=== PATIENT | male | born 1975 | race Caucasian/White ===

== ENCOUNTER 2022-05-12 13:51 | Emergency (ER) | payer OTHER ==
[2022-05-12 13:58] VITALS: TEMP 98.1
--- NOTE | 2022-05-12 14:25 | XR ---
EXAMINATION TYPE: XR ankle complete LT DATE OF EXAM: 05/12/2022 COMPARISON: NONE HISTORY: Ankle pain TECHNIQUE: 3 views FINDINGS: Ankle mortise is anatomic. There is no fracture nor dislocation. There is plantar and Achil les calcaneal spurring. Joint spaces are fairly normal. IMPRESSION: No acute abnormality of the left ankle.
--- NOTE | 2022-05-12 14:43 | ED ---
General Adult HPI - General Chief complaint: Extremity Injury, Lower Stated complaint: Lt ankle Injury Time Seen by Provider: 05/12/22 14:30 Source: patient, RN notes reviewed, old records reviewed Mode of arrival: ambulatory Limitations: no limitations - History of Present Illness Initial comments: This is a 47-year-old male who presents emergency Department complaining of left lateral ankle pain. Patient states about a month ago rock from a lawnmower shot out hit him in the ankle ever since then he's had pain just anterior to the lateral malleolus on the left. Patient denies any swelling patient denies any redness patient denies any numbness. Patient states it just hurts to walk on it and he is walking on a daily as a bello. Patient states she also has not been taking any medications for. Patient denies any foot pain or knee pain. - Related Data Previous Rx's Medication Instructions Recorded Ibuprofen [Motrin] 600 mg PO Q6HR PRN #20 tab 05/12/22 Allergies Allergy/AdvReac Type Severity Reaction Status Date / Time No Known Allergies Allergy Verified 05/12/22 13:58 Review of Systems ROS Statement: Those systems with pertinent positive or pertinent negative responses have been documented in the HPI. ROS Other: All systems not noted in ROS Statement are negative. Past Medical History Past Medical History: COPD Additional Past Medical History / Comment(s): back pain History of Any Multi-Drug Resistant Organisms: None Reported Past Surgical History: No Surgical Hx Reported Past Psychological History: Depression Past Alcohol Use History: None Reported Past Drug Use History: None Reported General Exam - General Exam Comments Initial Comments: GENERAL: Patient is well-developed and well-nourished. Patient is nontoxic and well- hydrated and is in mild distress. ENT: Neck has full range of motion without eliciting any pain. EYES: The sclera were anicteric and conjunctiva were pink and moist. Extraocular mov ements were intact and pupils were equal round and reactive to light. Eyelids were unremarkable. SKIN: Skin is clear with no lesions or rashes and otherwise unremarkable. NEUROLOGIC: Patient is alert and oriented x3. Cranial nerves II through XII are grossly intact. Motor and sensory are also intact. Normal speech, volume and content. Symmetrical smile. MUSCULOSKELETAL: Patient is tender just anterior to the left lateral malleolus. No signs of swelling or erythema LYMPHATICS: No significant lymphadenopathy is noted PSYCHIATRIC: Normal psychiatric evaluation. Limitations: no limitations Course Vital Signs 05/12/22 13:53 Temperature 98.1 F Pulse Rate 88 Respiratory 20 Rate Blood Pressure 151/89 O2 Sat by Pulse 98 Oximetry Medical Decision Making - Medical Decision Making X-ray shows no acute abnormality of the ankle Disposition Clinical Impression: Ankle contusion Disposition: HOME SELF-CARE Condition: Good Instructions (If sedation given, give patient instructions): Contusion in Adults (ED) Prescriptions: Ibuprofen [Motrin] 600 mg PO Q6HR PRN #20 tab PRN Reason: For pain Is patient prescribed a controlled substance at d/c from ED?: No Referrals: Jennifer Mulligan DO [Doctor of Osteopathic Medicine] - 1-2 days Time of Disposition: 14:43
[2022-05-12] MEDS ORDERED: KETOROLAC 15 MG/ML 1 ML VIAL IM STA (14:44)
[2022-05-12 15:22] VITALS: BP 147/86; PULSE 82; RESP 16
== END 2022-05-12 15:20 | disposition home or self-care (01) ==
LOC: EC 13:51
DX: S90.02XA Contusion of left ankle, initial encounter (principal); J44.9 Chronic obstructive pulmonary disease, unspecified; W20.8XXA Other cause of strike by thrown, projected or falling object, initial encounter
CPT/HCPCS: 73610; 99283; 96372; L4350; J1885

== ENCOUNTER 2024-02-21 22:19 | Inpatient (IN) | payer MEDICAID, OTHER ==
[2024-02-21] MEDS: LORazepam 1 MG TAB PO STA (23:54)
--- NOTE | 2024-02-22 00:51 | ED ---
Psych HPI - General Chief Complaint: Psychiatric Symptoms Stated Complaint: suicidal Time Seen by Provider: 02/21/24 23:08 Source: patient, EMS Mode of arrival: EMS Limitations: no limitations - History of Present Illness Initial Comments: This patient is a 49-year-old man who is brought by law enforcement to have psychiatric evaluation. The patient states that he has been dealing with a lot of stress. He states that his brother had committed suicide. Patient also lost his residence and states that his girlfriend had left. Patient states that he was feeling very upset tonight and he inflicted some lacerations to his bilateral forearms. The patient states he is not suicidal. Patient does feel he could use some help dealing with the stress. MD Complaint: other -: hour(s) Associated Psychiatric Symptoms: depression History of same: Yes Quality: intermittent Improves With: none Worsens With: none If Self Harm: admits thoughts of self harm - Related Data Previous Rx's Medication Instructions Recorded Folic Acid 1 mg PO DAILY #0 tab 02/27/24 HYDROcodone/APAP 7.5-325MG [[place] 1 each PO Q8HR PRN tab 02/27/24 7.5-325] Multivitamins, Thera [Multivitamin 1 each PO DAILY tab 02/27/24 (formulary)] Nicotine 21Mg/24Hr Patch [Habitrol] 1 patch TRANSDERM DAILY 14 Days 02/27/24 #14 patch Sertraline [Zoloft] 50 mg PO DAILY 30 Days #30 tab 02/27/24 Thiamine [Vitamin B-1] 100 mg PO DAILY tab 02/27/24 hydrOXYzine pamoate [Vistaril] 50 mg PO DAILY PRN 30 Days #60 cap 02/27/24 traZODone HCL [Desyrel] 100 mg PO HS 30 Days #30 tab 02/27/24 Allergies Allergy/AdvReac Type Severity Reaction Status Date / Time No Known Allergies Allergy Verified 05/12/22 13:58 Review of Systems ROS Statement: Those systems with pertinent positive or pertinent negative responses have been documented in the HPI. ROS Other: All systems not noted in ROS Statement are negative. Constitutional: Denies: fever, chills Respiratory: Denies: cough, dyspnea Cardiovascular: Denies: chest pain, palpitations Gastrointestinal: Denies: abdominal pain, vomiting, diarrhea Musculoskeletal: Denies: back pain Skin: Reports: lesions Neurological: Denies: headache, weakness, numbness Psychiatric: Reports: anxiety, depression. Denies: auditory hallucinations, visual hallucinations, homicidal thoughts, suicidal thoughts Past Medical History Past Medical History: COPD Additional Past Medical History / Comment(s): back pain History of Any Multi-Drug Resistant Organisms: None Reported Past Surgical History: No Surgical Hx Reported Past Psychological History: Depression Past Alcohol Use History: None Reported Past Drug Use History: None Reported General Exam Limitations: no limitations General appearance: alert, in no apparent distress Head exam: Present: atraumatic, normocephalic Eye exam: Present: normal appearance. Absent: scleral icterus, conjunctival injection Neck exam: Present: normal inspection Respiratory exam: Present: normal lung sounds bilaterally. Absent: respiratory distress, wheezes, rales, rhonchi, stridor, accessory muscle use Cardiovascular Exam: Present: regular rate, normal rhythm, normal heart sounds. Absent: systolic murmur, diastolic murmur, rubs, gallop GI/Abdominal exam: Present: soft. Absent: distended, tenderness, guarding, rebound, rigid, mass Extremities exam: Present: normal capillary refill. Absent: pedal edema, calf tenderness Neurological exam: Present: alert. Absent: motor sensory deficit Psychiatric exam: Present: depressed, anxious. Absent: flat affect, manic, homicidal ideation, suicidal ideation Skin exam: Present: warm, dry, other (Has some superficial lacerations to the palmar aspect of both wrists. None that are requiring suturing) Course Vital Signs 02/21/24 02/21/24 02/22/24 22:38 22:54 07:57 Temperature 98.4 F 97.9 F Pulse Rate 70 68 68 Pulse Rate [ Right Sitting Pulse Oximetery ] Respiratory 18 20 18 Rate Blood Pressure 153/99 150/94 142/82 Blood Pressure [Right Arm Sitting] O2 Sat by Pulse 98 99 99 Oximetry 02/22/24 08:20 Temperature 98 F Pulse Rate Pulse Rate [ 82 Right Sitting Pulse Oximetery ] Respiratory 20 Rate Blood Pressure Blood Pressure 168/95 [Right Arm Sitting] O2 Sat by Pulse 97 Oximetry Medical Decision Making - Medical Decision Making Was pt. sent in by a medical professional or institution (, PA, [employer], urgent care, hospital, or care home...) When possible be specific @ -[No] Did you speak to anyone other than the patient for history (EMS, parent, family, police, friend...)? What history was obtained from this source @ -[No] Did you review nursing and triage notes (agree or disagree)? Why? @ -[I reviewed and agree with nursing and triage notes] Were old charts reviewed (outside hosp., previous admission, EMS record, old EKG, old radiological studies, urgent care reports/EKG's, care home records)? Report findings @ -[No old charts were reviewed] Differential Diagnosis (chest pain, altered mental status, abdominal pain women, abdominal pain men, vaginal bleeding, weakness, fever, dyspnea, syncope, headache, dizziness, GI bleed, back pain, seizure, CVA, palpatations, mental health, musculoskeletal)? @ -[Differential Mental Health Depression, anxiety, bipolar, psychosis, schizophrenia, borderline personality, situational depression, adjustment disorder, behavioral disorder, brain tumor, malingering, substance abuse, encephalopathy, medication reaction, dementia, hypothyroidism, degenerative neurologic disorder, lupus.... This is not meant to be all-inclusive list EKG interpreted by me (3pts min.). @ -[As above] X-rays interpreted by me (1pt min.). @ -[None done] CT interpreted by me (1pt min.). @ -[None done] U/S interpreted by me (1pt. min.). @ -[None done] What testing was considered but not performed or refused? (CT, X-rays, U/S, labs)? Why? @ -[None] What meds were considered but not given or refused? Why? @ -[None] Did you discuss the management of the patient with other professionals (professionals i.e. , PA, [employer], lab, RT, psych nurse, social work specialist, director of event sales, teacher, code enforcement officer, director case)? Give summary @ -[No] Was smoking cessation discussed for >3mins.? @ -[No] Was critical care preformed (if so, how long)? @ -[No] Were there social determinants of health that impacted care today? How? (Homelessness, low income, unemployed, alcoholism, drug addiction, transportation, low edu. Level, literacy, decrease access to med. care, long term, rehab)? @ -[No] Was there de-escalation of care discussed even if they declined (Discuss DNR or withdrawal of care, Hospice)? DNR status @ -[No] What co-morbidities impacted this encounter? (DM, HTN, Smoking, COPD, CAD, Cancer, CVA, ARF, Chemo, Hep., AIDS, mental health diagnosis, sleep apnea, morbid obesity)? @ -[None] Was patient admitted / discharged? Hospital course, mention meds given and route, prescriptions, significant lab abnormalities, going to OR and other pertinent info. @ -[Patient is 49-year-old man brought to have psychiatric evaluation after making suicidal statements. The patient is evaluated by EPS and they will admit the patient to have further psychiatric treatment. Undiagnosed new problem with uncertain prognosis? @ -[No] Drug Therapy requiring intensive monitoring for toxicity (Heparin, Nitro, Insulin, Cardizem)? @ -[No] Were any procedures done? @ -[No] Diagnosis/symptom? @ -[Acute mood disorder with suicidal ideation Substance abuse Acute, or Chronic, or Acute on Chronic? @ -[Acute Uncomplicated (without systemic symptoms) or Complicated (systemic symptoms)? @ -[default] Side effects of treatment? @ -[No] Exacerbation, Progression, or Severe Exacerbation? @ -[No] Poses a threat to life or bodily function? How? (Chest pain, USA, NM, pneumonia, PE, COPD, DKA, ARF, appy, cholecystitis, CVA, Diverticulitis, Homicidal, Suicidal, threat to staff... and all critical care pts) @ -[Yes uncomplicated - Lab Data Result diagrams: 02/22/24 10:33 02/22/24 10:33 Lab Results 02/22/24 02/22/24 02/22/24 Range/Units 05:40 05:40 06:58 Urine Color Yellow Urine Appearance Clear (Clear) Urine pH 5.0 (5.0-8.0) Ur Specific [place] 1.015 (1.001-1.035) Urine Protein Negative (Negative) Urine Glucose (UA) Negative (Negative) Urine Ketones Negative (Negative) Urine Blood Negative (Negative) Urine Nitrite Negative (Negative) Urine Bilirubin Negative (Negative) Urine Urobilinogen <2.0 (<2.0) mg/dL Ur Leukocyte Esterase Negative (Negative) Urine Opiates Screen Detected H (NotDetected) Ur Oxycodone Screen Not Detected (NotDetected) Urine Methadone Screen Not Detected (NotDetected) Ur Barbiturates Screen Not Detected (NotDetected) U Tricyclic Antidepress Not Detected (NotDetected) Ur Phencyclidine Scrn Not Detected (NotDetected) Ur Amphetamines Screen Not Detected (NotDetected) U Methamphetamines Scrn Not Detected (NotDetected) U Benzodiazepines Scrn Detected H (NotDetected) Urine Cocaine Screen Not Detected (NotDetected) U Marijuana (THC) Screen Detected H (NotDetected) Influenza Type A (PCR) Not Detected (Not Detectd) Influenza Type B (PCR) Not Detected (Not Detectd) RSV (PCR) Not Detected (Not Detectd) SARS-CoV-2 (PCR) Not Detected (Not Detectd) Disposition Clinical Impression: Suicidal ideation Disposition: ADMITTED IP TO THIS HOSP Condition: Good Is patient prescribed a controlled substance at d/c from ED?: No
[2024-02-22] MEDS ORDERED: ACETAMINOPHEN TAB 325 MG TAB PO PRN (07:42)
[2024-02-22] MEDS ORDERED: haloperidoL 5 MG TAB PO PRN (07:42)
[2024-02-22] MEDS ORDERED: MAG HYDROX/AL HYDROX/SIMETH 355 ML BOTTLE PO PRN (07:42)
[2024-02-22] MEDS ORDERED: HALOPERIDOL LACTATE 5 MG/ML 1 ML VIAL IM PRN (07:42)
[2024-02-22] MEDS ORDERED: MAGNESIUM HYDROXIDE 2,400 MG/30 ML CUP PO PRN (07:42)
[2024-02-22] MEDS: FOLIC ACID 1 MG TAB PO SCH (09:05)
[2024-02-22] MEDS: MULTIVITAMINS, THERA 1 EACH TAB PO SCH (09:05)
[2024-02-22] MEDS: THIAMINE 100 MG TAB PO SCH (09:05)
[2024-02-22] MEDS: NICOTINE 21MG/24HR PATCH TRANSDERM SCH (09:06)
[2024-02-22] MEDS: HYDROcodone/APAP 7.5-325MG 1 EACH TAB PO PRN (09:09)
[2024-02-22] MEDS: LORazepam 1 MG TAB PO PRN (09:11)
--- NOTE | 2024-02-22 10:22 | P.HP ---
Psychiatric H&P - . H&P Date: 02/22/24 History & Physical: Allergies Allergy/AdvReac Type Severity Reaction Status Date / Time No Known Allergies Allergy Verified 05/12/22 13:58 Vital Signs Temp 98 F 02/22/24 08:20 Pulse 82 02/22/24 08:20 Resp 20 02/22/24 08:20 BP 168/95 02/22/24 08:20 Pulse Ox 97 02/22/24 08:20 FiO2 Intake & Output 02/21/24 02/22/24 02/22/24 18:59 06:59 18:59 Weight 81.647 kg 71.894 kg Laboratory Last Values Influenza Type A (PCR) Not Detected (Not Detectd) 02/22/24 05:40 Influenza Type B (PCR) Not Detected (Not Detectd) 02/22/24 05:40 RSV (PCR) Not Detected (Not Detectd) 02/22/24 05:40 SARS-CoV-2 (PCR) Not Detected (Not Detectd) 02/22/24 05:40 02/22/24 10:14 This is a psychiatric assessment on Levy Stafford who is a 49-year-old male who was hospitalized after patient had made comments about wanting to kill himself Patient reports interpersonal family issues and conflicts where he states that he and his girlfriend were having problems getting along with each other He states that the girlfriend always is very condescending and calls him names and that it hurts his feelings Patient states that he made some cuts on his arms and had some suicidal thoughts but denies any actual plans at this time He admits that he drinks some alcohol but that he does use cannabis on a daily basis He states that he has been living with his girlfriend for 15 years He states that he is currently on disability He denies any ongoing psychiatric treatment at this time Past history personal and social history Patient remains somewhat vague about his specific details Patient reports that he is on disability but did not give any specifics He reports that he has had some mental issues but did not get any ongoing treatment and that he was last hospitalized on the psychiatric unit about 11 years ago He states that he usually spends his time watching TV or going for walks Mental status examination: Reveals a tall thin build male with multiple tattoos and shaved head Patient is alert and oriented to time place and person Affect at this time remains flat Patient makes good eye contact Thought processes are goal directed sequential and logical Speech was Soft spoken and appropriate Thought processes are goal directed sequential and logical Patient denies any suicidal or homicidal ideations Mood remains flat Self-esteem and confidence a low cognitively appears to be intact Diagnostic impression: Adjustment disorder with mixed emotional features Major depressive disorder mild Relationship problems/interpersonal family issues and conflicts Cannabis use disorder Alcohol use disorder unsspecified Formulation and plan: The patient will be hospitalized on the unit for further evaluation and treatment Therapy will be focused on providing supportive care and improving his coping abilities to the multimodal treatment Patient will also participate in outdoor activities individual milieu group OT RT PT and pharmacotherapy Approximate length of stay would be 7 to 10 days will start the patient on Zoloft 150 mg daily to start with and titrate to response Patient was briefed on the effects and side effects of the medication which she appears to have understood well If as needed medications have been needed would recommend using Haldol and Vistaril as needed field services analyst on board regarding initiation of any family therapy and other psychosocial services Prasanna Saldaña MD
[2024-02-22 10:41] LABS: Appearance,Urine Clear (Clear); Bilirubin,Urine Negative (Negative); Blood,Urine Negative (Negative); Color,Urine Yellow; Glucose,Urine (UA) Negative (Negative); Ketones,Urine Negative (Negative); Leukocyte Esterase,Urine Negative (Negative); Nitrite,Urine Negative (Negative); Protein,Urine Negative (Negative); Specific Gravity,Urine 1.015 (1.001-1.035); Urobilinogen,Urine <2.0 mg/dL (<2.0)
[2024-02-22 11:01] LABS: Basophils # (A) 0.1 k/uL (0-0.2); Basophils % (A) 1 %; Eosinophils # (A) 0.2 k/uL (0-0.7); Eosinophils % (A) 2 %; HCT 49.9 % (39.0-53.0); HGB 15.8 gm/dL (13.0-17.5); Lymphocytes # (A) 1.5 k/uL (1.0-4.8); Lymphocytes % (A) 20 %; MCH 30.8 pg (25.0-35.0); MCHC 31.7 g/dL (31.0-37.0); MCV 97.2 fL (80.0-100.0); Mean Platelet Volume 8.5; Monocytes # (A) 0.4 k/uL (0-1.0); Monocytes % (A) 5 %; Neutrophils # (A) 5.5 k/uL (1.3-7.7); Neutrophils % (A) 71 %; Platelet Count 240 k/uL (150-450); RBC 5.14 m/uL (4.30-5.90); RDW 12.9 % (11.5-15.5); WBC 7.8 k/uL (3.8-10.6)
[2024-02-22 11:08] LABS: Amphetamine Screen,Urine Not Detected (NotDetected); Barbiturate Screen,Urine Not Detected (NotDetected); Benzodiazepines Screen,Urine Detected (NotDetected); Cocaine Screen,Urine Not Detected (NotDetected); Methadone Screen, Urine Not Detected (NotDetected); Opiate Screen,Urine Detected (NotDetected); Oxycodone Screen, Urine Not Detected (NotDetected); Phencyclidine Screen,Urine Not Detected (NotDetected); Tricyclic Antidepressant,Urine Not Detected (NotDetected); Urn Cannabinoid Scrn Detected (NotDetected)
[2024-02-22 11:20] LABS: ALT 40 U/L (4-49); AST 54 U/L (17-59); African American GFR (CKD) >90 (>60 ml/min/1.73 sqM); Albumin 4.8 g/dL (3.5-5.0); Alkaline Phosphatase 62 U/L (38-126); Anion Gap 9 mmol/L; Bilirubin, Delta 0.4 mg/dL (0.0-0.2); Bilirubin,Unconjugated 0.4 mg/dL (0.0-1.1); Blood Urea Nitrogen 11 mg/dL (9-20); Calcium 9.8 mg/dL (8.4-10.2); Carbon Dioxide 25 mmol/L (22-30); Chloride 107 mmol/L (98-107); Glucose 129 mg/dL (74-99); Non-African American GFR(CKD) >90 (>60 ml/min/1.73 sqM); Potassium 4.4 mmol/L (3.5-5.1); Sodium 141 mmol/L (137-145); Total Bilirubin 0.8 mg/dL (0.2-1.3); Total Protein 7.9 g/dL (6.3-8.2)
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
[2024-02-23 07:48] LABS: Chol/HDL Ratio 1.82 Ratio; LDL Cholesterol,Calculated 76.8 mg/dL (0.0-131.0); VLDL Calculation 12.22 mg/dL (5.00-40.00)
[2024-02-23] MEDS: SERTRALINE 50 MG TAB PO SCH (08:28)
--- NOTE | 2024-02-23 11:40 | P.PN ---
Progress Note - Text Progress Note Date: 02/23/24 Interval History: Patient was seen wandering the hallways and was directable and agreeable to sp hazel with securities underwriter in the office. Patient states what brought him in was "just a bad day". Patient states that him cutting his wrists was not an attempt at suicide, he just wanted to show his friend to "stop fucking with me, I've had enough". Patient states that he is sleeping well at night. He states his appetite is good. Patient denies withdraws from alcohol. Bush Hog Operator spoke with patient about rehab upon discharge, patient is refusing. He states that he don't need it. Bush Hog Operator offered anticraving medication, patient declined. At this time patient denies any suicidal or homicidal ideations, intent or plan. Patient denies any auditory, visual hallucinations and denies any paranoia or delusions. Patient denies any side effects from the medications and has been compliant with meds. Mental Status Exam: General Appearance: [Patient appears to be older than stated age is alert, directable, and cooperative. Patient has fair hygiene. dressed in his own clothes. Multiple tattoos. Tall and thin, with a robertson. Behavior: [Patient is calmly seated without any agitated behavior. Speech: Patient's speech is fluent and nonpressured. Mood/Affect: Mood is improving mildly, affect is congruent and constricted. Suicidality/Homicidality: Patient denies having any suicidal or homicidal ideation intent or plan. Perceptions: Patient denies any visual hallucinations and denies any auditory hallucinations Though content/process: There is no evidence of any delusional thought content and thought process is linear and goal-directed. Memory and concentration: AOX3, grossly intact for the purposes of this session Judgment and insight: Improving mildly Assessment Adjustment disorder with mixed emotional features Major depressive disorder mild Cannabis use disorder Alcohol use disorder unsspecified Plan: -Patient continues to meet criteria for inpatient psychiatric admission for symptom stabilization and safety. Patient has signed adult voluntary form and medication consent and was placed in patient's chart. -Medications: Zoloft 50 mg p.o. daily for mood/anxiety , offered ant cravings medications for etoh and patient refused at this time -When necessary Ativan and Haldol for agitation/aggression. -NRT - nicotine patch -SW on board for discharge planning. Encouraged the patient to participate in milieu. Offered patient rehab, patient refused.
[2024-02-23] MEDS: LORazepam 1 MG TAB PO PRN (17:16)
--- NOTE | 2024-02-24 10:13 | P.PN ---
Progress Note - Text Progress Note Date: 02/24/24 Interval History: Patient was seen today and was directable and agreeable to speak with sba underwriter in the office. Patient was attending group this morning. He claims that he is doing a bit better today, did complain of some withdrawals last night and received Ativan. He states that after he received the Ativan he was able to sleep fairly well. He claims that he is feeling a bit calmer with the medications, not offering any complaints at this time. He claims that he is getting more out of groups at this time, has been getting along with others on the unit, he has been eating regularly and showering. Claims a anxiety still there however mildly improving. At this time patient denies any suicidal or homicidal ideations, intent or plan. Patient denies any auditory, visual hallucinations and denies any paranoia or delusions. Patient denies any side effects from the medications and has been compliant with meds. Mental Status Exam: General Appearance: [Patient appears to be older than stated age is alert, directable, and cooperative. Patient has fair hygiene. dressed in his own cloth es. Multiple tattoos. Tall and thin, with a robertson. Behavior: [Patient is calmly seated without any agitated behavior. Mildly more cooperative today. Speech: Patient's speech is fluent and nonpressured. Mood/Affect: Mood is improving mildly, affect is congruent and constricted. Improving mildly Suicidality/Homicidality: Patient denies having any suicidal or homicidal ideation intent or plan. Perceptions: Patient denies any visual hallucinations and denies any auditory hallucinations Though content/process: There is no evidence of any delusional thought content and thought process is linear and goal-directed. Memory and concentration: AOX3, grossly intact for the purposes of this session Judgment and insight: Improving mildly Assessment: Adjustment disorder with mixed emotional features Major depressive disorder mild Cannabis use disorder Alcohol use disorder unsspecified Plan: -Patient continues to meet criteria for inpatient psychiatric admission for symptom stabilization and safety. Patient has signed adult voluntary form and medication consent and was placed in patient's chart. -Medications: Zoloft 50 mg p.o. daily for mood/anxiety, patient is refusing anti cravings medications for etoh, start trazodone 50 mg nightly as needed for insomnia. -When necessary Ativan and Haldol for agitation/aggression. -NRT - nicotine patch -SW on board for discharge planning. Encouraged the patient to participate in milieu. Offered patient rehab, patient refused. Likely discharge in 2 to 3 days back home.
[2024-02-24] MEDS: traZODone HCL 50 MG TAB PO PRN (20:22)
[2024-02-24] MEDS: IBUPROFEN 600 MG TAB PO PRN (20:22)
--- NOTE | 2024-02-25 10:05 | P.PN ---
Progress Note - Text Progress Note Date: 02/25/24 Interval History: Patient was seen today in group, and was directable and agreeable to speak with mortgage loan underwriter in the office. Patient states his mood and anxiety are mildly improving, not offering any complaints at this time. He states that he is going to all groups, has been getting along with others on the unit, he has been eating regularly and showering. At this time patient denies any suicidal or homicidal ideations, intent or plan. Patient denies any auditory, visual hallucinations and denies any paranoia or delusions. Patient denies any side effects from the medications and has been compliant with meds. Mental Status Exam: General Appearance: Patient appears to be older than stated age is alert, directable, and cooperative. Patient has fair hygiene. dressed in his own clothes. Multiple tattoos. Tall and thin, with a robertson. Behavior: Patient is calmly seated without any agitated behavior. Mildly more cooperative today. Speech: Patient's speech is fluent and nonpressured. Mood/Affect: Mood is improving mildly, affect is congruent and constricted. Improving mildly Suicidality/Homicidality: Patient denies having any suicidal or homicidal ideation intent or plan. Perceptions: Patient denies any visual hallucinations and denies any auditory hallucinations Though content/process: There is no evidence of any delusional thought content and thought process is linear and goal-directed. Memory and concentration: AOX3, grossly intact for the purposes of this session Judgment and insight: Improving mildly Assessment: Adjustment disorder with mixed emotional features Major depressive disorder mild Cannabis use disorder Alcohol use disorder unsspecified Plan: -Patient continues to meet criteria for inpatient psychiatric admission for symptom stabilization and safety. Patient has signed adult voluntary form and medication consent and was placed in patient's chart. -Medications: Zoloft 50 mg p.o. daily for mood/anxiety, patient is refusing anti cravings medications for etoh, increase trazodone 100mg nightly as needed for insomnia. -When necessary Ativan and Haldol for agitation/aggression. -NRT - nicotine patch -SW on board for discharge planning. Encouraged the patient to participate in milieu. Offered patient rehab, patient refused. Likely discharge back home on friday.
[2024-02-25] MEDS: traZODone HCL 100 MG TAB PO SCH (21:31)
[2024-02-26 07:50] VITALS: RESP 14
--- NOTE | 2024-02-26 10:09 | P.PN ---
Progress Note - Text Progress Note Date: 02/26/24 Interval History: Patient was seen today in group, and was directable and agreeable to speak with science writer in the office. Patient states his mood is improving, and he no longer is endorsing any anxiety. He said he spoke with his 10 year old grandson, and is excited to get out to hug him. patient did need to take an ativan prn yesterday due to anxiety. He is sleeping good. He states that he is going to all groups, has been getting along with others on the unit, he has been eating regularly and showering. denies any etoh w/d sx. At this time patient denies any suicidal or homicidal ideations, intent or plan. Patient denies any auditory, visual hallucinations and denies any paranoia or delusions. Patient denies any side effects from the medications and has been compliant with meds. Mental Status Exam: General Appearance: Patient appears to be older than stated age is alert, directable, and cooperative. Patient has fair hygiene. dressed in his own clothes. Multiple tattoos. Tall and thin, with a robertson. Behavior: Patient is calmly seated without any agitated behavior. Mildly more c ooperative today. Speech: Patient's speech is fluent and nonpressured. Mood/Affect: Mood is great, affect is congruent and constricted. Improving mildly Suicidality/Homicidality: Patient denies having any suicidal or homicidal ideation intent or plan. Perceptions: Patient denies any visual hallucinations and denies any auditory hallucinations Though content/process: There is no evidence of any delusional thought content and thought process is linear and goal-directed. Memory and concentration: AOX3, grossly intact for the purposes of this session Judgment and insight: Improving Assessment: Adjustment disorder with mixed emotional features Major depressive disorder mild Cannabis use disorder Alcohol use disorder unsspecified Plan: -Patient continues to meet criteria for inpatient psychiatric admission for symptom stabilization and safety. Patient has signed adult voluntary form and medication consent and was placed in patient's chart. -Medications: Zoloft 50 mg p.o. daily for mood/anxiety, patient is refusing anti cravings medications for etoh, trazodone 100mg nightly as needed for insomnia. Vistaril prn for anxiety, d/c ativan -D/C CIWA and prn ativan -When necessary vistaril and Haldol for agitation/aggression. -NRT - nicotine patch -SW on board for discharge planning. Encouraged the patient to participate in milieu. Offered patient rehab, patient refused. Likely discharge tomorrow back home.
[2024-02-26] MEDS: hydrOXYzine pamoate 25 MG CAP PO PRN (15:59)
[2024-02-27 06:42] VITALS: TEMP 98.2
--- NOTE | 2024-02-27 10:27 | P.DS ---
Providers Date of admission: 02/22/24 06:59 Expected date of discharge: 02/27/24 Attending physician: Noble Alejandro MD Consults: 02/22/24 07:42 Consult Physician Routine Consulting Provider: Lamberto Rivas Consult Reason/Comments: H & P w/medical and medication mgmt Do you want consulting provider notified?: Already Contacted Primary care physician: Evens Peter - Discharge Diagnosis(es) (1) Adjustment disorder with mixed emotional features Current Visit: Yes Status: Acute Priority: High (2) Major depressive disorder, recurrent, mild Current Visit: Yes Status: Acute Priority: High (3) Cannabis use disorder Current Visit: Yes Status: Acute Priority: Medium (4) Alcohol use disorder Current Visit: Yes Status: Acute Priority: High Hospital Course: Admission HPI: Admission note was completed by Dr Saldaña "This is a psychiatric assessment on Levy Stafford who is a 49-year-old male who was hospitalized after patient had made comments about wanting to kill himself Patient reports interpersonal family issues and conflicts where he states that he and his girlfriend were having problems getting along with each other He states that the girlfriend always is very condescending and calls him names and that it hurts his feelings Patient states that he made some cuts on his arms and had some suicidal thoughts but denies any actual plans at this time He admits that he drinks some alcohol but that he does use cannabis on a daily basis He states that he has been living with his girlfriend for 15 years He states that he is currently on disability He denies any ongoing psychiatric treatment at this time" Hospital course: Upon admission to the unit patient was directable and agreeable to commence treatment and signed adult voluntary form. Patient got along well with other patients on the unit and followed unit protocol. Patient was compliant with the medications and denied any side effects throughout hospital course. Patient was started on Zoloft 50 mg for mood/anxiety, trazodone 100 mg nightly for insomnia, Vistaril as needed for anxiety. Patient was placed on CIWA protocol with as needed Ativan and also scheduled Librium which was tapered off for alcohol withdrawal. Patient was offered anticraving medications for alcohol use however declined. Patient spoke of his stressors and engaged in therapy both group and individual. Patient was also seen by medical team for history and physical exam. Throughout the course of the hospitalization patient gradually improved with regards to mood, anxiety, suicidal thoughts, sleep and returned back to their baseline level of functioning. On the day of discharge patient denied any suicidal or homicidal ideations intent or plan denied any auditory or visual hallucinations. Patient endorsed wanting to live for his health and family. The patient denied any access to guns or weapons. Patient denied any paranoia and did not endorse any delusions. Patient does have a significant history of substance abuse and was counseled on abstaining from all substances including alcohol and marijuana. Patient was offered however declined inpatient substance-abuse rehab. Patient elected to do outpatient substance use treatment program through [facility]. Patient was also counseled on the medications and need for regular compliance and was encouraged to follow-up with their outpatient appointment for mental health and also for primary care. Prior to discharge a family meeting will be arranged by criminal justice social worker to answer any questions and ensure safety upon discharge. Mental status exam: General Appearance: Patient appears to be tall, thin, stated age is alert, pleasant, and cooperative. Patient is in no acute distress and has improved hygiene and grooming Behavior: Patient is calmly seated without any agitated behavior. Speech: Patient's speech is fluent and nonpressured. Mood/Affect: Patient reports their mood is "better", affect is congruent and euthymic. Suicidality/Homicidality: Patient denies having any suicidal or homicidal ideation intent or plan. Perceptions: Patient denies any auditory or visual hallucinations. Though content/process: There is no evidence of any delusional thought content and thought process is linear and goal-directed. More future oriented Memory and concentration: AOX3, grossly intact for the purposes of this session. Can spell "WORLD" backwards correctly. Judgment and insight: improved with guarded prognosis Impression: Adjustment disorder with mixed emotional features Major depressive disorder mild Cannabis use disorder Alcohol use disorder unsspecified Plan: -Continue with discharge today as patient has improved and stabilized psychiatrically and is not currently an imminent threat to himself and/or others. Patient will remain at chronically elevated risk for harm to self and/or others due to his polysubstance abuse. -Continue medications: zoloft 50 mg daily for mood/anxiety, trazodone 100 mg qhs for insomnia/mood, vistaril 50 mg daily prn for anxiety. -Patient was counseled on the need for medication compliance and appropriate follow-up at mental health and also primary care for medical issues. Patient verbalized understanding and agreed. -Social work to arrange for and conduct family meeting to ensure safety upon discharge and answer any questions/concerns. Social work also to arrange for patients follow up appointments with [facility] for psychiatric care along with follow up with primary care provider. -Patient counseled on abstaining from recreational drugs and marijuana and alcohol. Was informed/educated on the adverse effects on their physical and mental health. Patient verbally agreed and understood. Patient was offered substance abuse treatment however declined at this time. -Patient was instructed to return to the hospital or seek immediate medical care if their psychiatric or medical symptoms do worsen or reoccur. Allergies Allergy/AdvReac Type Severity Reaction Status Date / Time No Known Allergies Allergy Verified 05/12/22 13:58 Laboratory Results WBC 7.8 k/uL (3.8-10.6) 02/22/24 10:33 RBC 5.14 m/uL (4.30-5.90) 02/22/24 10:33 Hgb 15.8 gm/dL (13.0-17.5) 02/22/24 10:33 Hct 49.9 % (39.0-53.0) 02/22/24 10:33 MCV 97.2 fL (80.0-100.0) 02/22/24 10:33 MCH 30.8 pg (25.0-35.0) 02/22/24 10:33 MCHC 31.7 g/dL (31.0-37.0) 02/22/24 10:33 RDW 12.9 % (11.5-15.5) 02/22/24 10:33 Plt Count 240 k/uL (150-450) 02/22/24 10:33 MPV 8.5 02/22/24 10:33 Neutrophils % 71 % 02/22/24 10:33 Lymphocytes % 20 % 02/22/24 10:33 Monocytes % 5 % 02/22/24 10:33 Eosinophils % 2 % 02/22/24 10:33 Basophils % 1 % 02/22/24 10:33 Neutrophils # 5.5 k/uL (1.3-7.7) 02/22/24 10:33 Lymphocytes # 1.5 k/uL (1.0-4.8) 02/22/24 10:33 Monocytes # 0.4 k/uL (0-1.0) 02/22/24 10:33 Eosinophils # 0.2 k/uL (0-0.7) 02/22/24 10:33 Basophils # 0.1 k/uL (0-0.2) 02/22/24 10:33 Sodium 141 mmol/L (137-145) 02/22/24 10:33 Potassium 4.4 mmol/L (3.5-5.1) 02/22/24 10:33 Chloride 107 mmol/L (98-107) 02/22/24 10:33 Carbon Dioxide 25 mmol/L (22-30) 02/22/24 10:33 Anion Gap 9 mmol/L 02/22/24 10:33 BUN 11 mg/dL (9-20) 02/22/24 10:33 Creatinine 0.74 mg/dL (0.66-1.25) 02/22/24 10:33 Est GFR (CKD-EPI)AfAm >90 (>60 ml/min/1.73 sqM) 02/22/24 10:33 Est GFR (CKD-EPI)NonAf >90 (>60 ml/min/1.73 sqM) 02/22/24 10:33 Glucose 129 mg/dL (74-99) H 02/22/24 10:[address] Glu mg/dL 120 mg/dL 02/22/24 10:33 Hemoglobin A1c 5.8 % (<=6.0) 02/22/24 10:33 Calcium 9.8 mg/dL (8.4-10.2) 02/22/24 10:33 Total Bilirubin 0.8 mg/dL (0.2-1.3) 02/22/24 10:33 Conjugated Bilirubin 0.0 mg/dL (0.0-0.3) 02/22/24 10:33 Unconjugated Bilirubin 0.4 mg/dL (0.0-1.1) 02/22/24 10:33 Delta Bilirubin 0.4 mg/dL (0.0-0.2) H 02/22/24 10:33 AST 54 U/L (17-59) 02/22/24 10:33 ALT 40 U/L (4-49) 02/22/24 10:33 Alkaline Phosphatase 62 U/L (38-126) 02/22/24 10:33 Total Protein 7.9 g/dL (6.3-8.2) 02/22/24 10:33 Albumin 4.8 g/dL (3.5-5.0) 02/22/24 10:33 Triglycerides 61.10 mg/dL (0.00-149.00) 02/22/24 10:33 Cholesterol 198.00 mg/dL (0.00-200.00) 02/22/24 10:33 LDL Cholesterol, Calc 76.8 mg/dL (0.0-131.0) 02/22/24 10:33 VLDL Cholesterol, Calc 12.22 mg/dL (5.00-40.00) 02/22/24 10:33 HDL Cholesterol 109.00 mg/dL (40.00-60.00) H 02/22/24 10:33 Cholesterol/HDL Ratio 1.82 Ratio 02/22/24 10:33 TSH 0.919 mIU/L (0.465-4.680) 02/22/24 10:33 Urine Color Yellow 02/22/24 06:58 Urine Appearance Clear (Clear) 02/22/24 06:58 Urine pH 5.0 (5.0-8.0) 02/22/24 06:58 Ur Specific [place] 1.015 (1.001-1.035) 02/22/24 06:58 Urine Protein Negative (Negative) 02/22/24 06:58 Urine Glucose (UA) Negative (Negative) 02/22/24 06:58 Urine Ketones Negative (Negative) 02/22/24 06:58 Urine Blood Negative (Negative) 02/22/24 06:58 Urine Nitrite Negative (Negative) 02/22/24 06:58 Urine Bilirubin Negative (Negative) 02/22/24 06:58 Urine Urobilinogen <2.0 mg/dL (<2.0) 02/22/24 06:58 Ur Leukocyte Esterase Negative (Negative) 02/22/24 06:58 Urine Opiates Screen Detected (NotDetected) H 02/22/24 05:40 Ur Oxycodone Screen Not Detected (NotDetected) 02/22/24 05:40 Urine Methadone Screen Not Detected (NotDetected) 02/22/24 05:40 Ur Barbiturates Screen Not Detected (NotDetected) 02/22/24 05:40 U Tricyclic Antidepress Not Detected (NotDetected) 02/22/24 05:40 Ur Phencyclidine Scrn Not Detected (NotDetected) 02/22/24 05:40 Ur Amphetamines Screen Not Detected (NotDetected) 02/22/24 05:40 U Methamphetamines Scrn Not Detected (NotDetected) 02/22/24 05:40 U Benzodiazepines Scrn Detected (NotDetected) H 02/22/24 05:40 Urine Cocaine Screen Not Detected (NotDetected) 02/22/24 05:40 U Marijuana (THC) Screen Detected (NotDetected) H 02/22/24 05:40 Influenza Type A (PCR) Not Detected (Not Detectd) 02/22/24 05:40 Influenza Type B (PCR) Not Detected (Not Detectd) 02/22/24 05:40 RSV (PCR) Not Detected (Not Detectd) 02/22/24 05:40 SARS-CoV-2 (PCR) Not Detected (Not Detectd) 02/22/24 05:40 Vital Signs Temp 98.2 F 02/27/24 06:25 Pulse 58 L 02/27/24 06:25 Resp 14 02/27/24 06:25 BP 132/75 02/27/24 06:25 Pulse Ox 98 02/24/24 06:00 FiO2 Plan - Discharge Summary Discharge Rx Participant: No New Discharge Prescriptions: New Folic Acid 1 mg PO DAILY #0 tab HYDROcodone/APAP 7.5-325MG [[place] 7.5-325] 1 each PO Q8HR PRN tab PRN Reason: Pain hydrOXYzine pamoate [Vistaril] 50 mg PO DAILY PRN 30 Days #60 cap PRN Reason: Anxiety traZODone HCL [Desyrel] 100 mg PO HS 30 Days #30 tab Nicotine 21Mg/24Hr Patch [Habitrol] 1 patch TRANSDERM DAILY 14 Days #14 patch Multivitamins, Thera [Multivitamin (formulary)] 1 each PO DAILY tab Thiamine [Vitamin B-1] 100 mg PO DAILY tab Sertraline [Zoloft] 50 mg PO DAILY 30 Days #30 tab Discontinued Ibuprofen [Motrin] 600 mg PO Q6HR PRN #20 tab PRN Reason: For pain Hydrocodone/Acetaminophen [Hydrocodone/Acetaminophen 7.5-325] 1 tab PO Q8H PRN PRN Reason: Pain Control Discharge Medication List Folic Acid 1 mg PO DAILY #0 tab 02/27/24 [Rx] HYDROcodone/APAP 7.5-325MG [Okarche 7.5-325] 1 each PO Q8HR PRN tab 02/27/24 [Rx] Multivitamins, Thera [Multivitamin (formulary)] 1 each PO DAILY tab 02/27/24 [Rx] Nicotine 21Mg/24Hr Patch [Habitrol] 1 patch TRANSDERM DAILY 14 Days #14 patch 02/27/24 [Rx] Sertraline [Zoloft] 50 mg PO DAILY 30 Days #30 tab 02/27/24 [Rx] Thiamine [Vitamin B-1] 100 mg PO DAILY tab 02/27/24 [Rx] hydrOXYzine pamoate [Vistaril] 50 mg PO DAILY PRN 30 Days #60 cap 02/27/24 [Rx] traZODone HCL [Desyrel] 100 mg PO HS 30 Days #30 tab 02/27/24 [Rx] Follow up Appointment(s)/Referral(s): Lena Cerv[facility] [Outside] - 1 Week [facility] [Outside] - 03/01/24 11:30 am (Intake w: Kaley @ 11:30 am on Friday03/01/24 ~ (Send Packet)) Evens Peter DO [Primary Care Provider] - 1-2 days Patient Instructions/Handouts: Depression (GEN), Alcohol Intoxication (DC), Cannabis Abuse (DC) Activity/Diet/Wound Care/Special Instructions: Avoid the use of street drugs and alcohol. Take all medications as prescribed. When you are in need of refills on your medications, please contact your medical provider and/or outpatient psychiatrist/provider to have this done. Please go to your scheduled outpatient appointment for aftercare treatment. If symptoms return or become worse, call the crisis line at and/or go to the nearest emergency room for evaluation. National Suicide Hotline 762 Discharge/Stand Alone Forms: AA Meetings [place] Discharge Disposition: HOME SELF-CARE
[2024-02-27 11:08] VITALS: BP 129/77; PULSE 65
== END 2024-02-27 14:00 | disposition home or self-care (01) | DRG 755 ==
LOC: EC 22:19 → 3MHU 02-22 06:59
PROVIDERS: ADMIT Psychiatry & Neurology Psychiatry; ATTEND Psychiatry & Neurology Psychiatry
DX: F43.23 Adjustment disorder with mixed anxiety and depressed mood (principal); F33.0 Major depressive disorder, recurrent, mild; S61.512A Laceration without foreign body of left wrist, initial encounter; S61.511A Laceration without foreign body of right wrist, initial encounter; M54.9 Dorsalgia, unspecified; X78.9XXA Intentional self-harm by unspecified sharp object, initial encounter; J44.9 Chronic obstructive pulmonary disease, unspecified; G47.00 Insomnia, unspecified; F17.200 Nicotine dependence, unspecified, uncomplicated; F12.10 Cannabis abuse, uncomplicated; F10.10 Alcohol abuse, uncomplicated; Z71.51 Drug abuse counseling and surveillance of drug abuser; Z71.41 Alcohol abuse counseling and surveillance of alcoholic; Z79.899 Other long term (current) drug therapy; Z63.0 Problems in relationship with spouse or partner; Z63.4 Disappearance and death of family member; Z28.310 Unvaccinated for COVID-19
CPT/HCPCS: 80053; 80061; 80306; 81003; 82075; 82248; 83036; 84443; 85025; 87636; 99285